=== PATIENT | female | born 1990 | race Caucasian/White ===

== ENCOUNTER 2017-01-21 05:09 | Inpatient (IN) | payer OTHER ==
--- NOTE | 2017-01-15 14:04 | PAT Medication Instructions ---
Service Date Jan 15, 2017. Current Home Medication List Multivit/Min/Iron/Fol Ac/Pren ( Vitamin), 1 TAB PO QAM Omeprazole (Prilosec), 20 MG PO QAM Medication Instructions For Your Scheduled Surgery - Hold the following medications the morning of surgery: Multivit/Min/Iron/Fol Ac/Pren ( Vitamin), 1 TAB PO QAM - Take the following medications the morning of surgery with a sip of water: Omeprazole (Prilosec), 20 MG PO QAM If you have any questions please call us at [phone] or [phone] or [phone]
[2017-01-15 14:38] LABS: BASO % 0.3 %; BASO ABS # 0.02 K/uL (0-0.2); COMPLETE YES; EOS % 0.8 %; HEMATOCRIT 38.5 % (37-47); IG% 0.3 %; LYMPH % 18.8 %; MEAN CELL VOLUME 84.1 fL (80-100); MEAN CORPUSCULAR HEMOGLOBIN 27.5 pg (25-34); MEAN CORPUSCULAR HGB CONC 32.7 g/dl (32-36); MONO % 7.9 %; NEUT % 71.9 %; PLATELET COUNT 291 K/uL (130-400); RED BLOOD COUNT 4.58 M/uL (4.2-5.4); WHITE BLOOD COUNT 7.98 K/uL (4.8-10.8)
[2017-01-21] VITALS (16 sets, daily range): BP systolic 112–122; BP diastolic 72–78; PULSE 70–95; TEMP 36.5–37.1; O2SAT 97–100; Ht 160 cm; Wt 80.7 kg
[~2017-01-21] VITALS: Ht 160 cm; Wt 80.7 kg
[~2017-01-21 05:09] MED LIST: PRENTAB26 PO; PRLSR20 PO
[2017-01-21] MEDS ORDERED: LACTATED RINGER'S 1000ML 1,000 ML IV SCH (05:20)
[2017-01-21] MEDS ORDERED: CITRIC ACID/SODIUM CITRATE 15 ML UDC PO STA (05:44)
[2017-01-21 05:52] LABS: BENZODIAZEPINE, URINE NEG (NEG); COCAINE,URINE NEG (NEG); PHENCYCLIDINE, URINE NEG (NEG)
[2017-01-21] MEDS ORDERED: CEFAZOLIN 2000 MG/60 ML D5W IV SCH (06:00)
[2017-01-21] MEDS: LACTATED RINGER'S 1000ML 1,000 ML IV SCH ×2 (06:22→18:43)
[2017-01-21 06:30] LABS: BASO % 0.3 %; BASO ABS # 0.02 K/uL (0-0.2); COMPLETE YES; EOS % 1.2 %; HEMATOCRIT 39.1 % (37-47); IG% 0.4 %; LYMPH ABS # 1.68 K/uL (1.2-3.4); MEAN CELL VOLUME 84.1 fL (80-100); MEAN CORPUSCULAR HEMOGLOBIN 26.2 pg (25-34); MEAN CORPUSCULAR HGB CONC 31.2 g/dl (32-36); MEAN PLATELET VOLUME 10.8 fL (7.4-10.4); MONO % 6.8 %; NEUT % 68.3 %; PLATELET COUNT 257 K/uL (130-400); RED BLOOD COUNT 4.65 M/uL (4.2-5.4); WHITE BLOOD COUNT 7.31 K/uL (4.8-10.8)
[2017-01-21] MEDS ORDERED: FENTANYL CITRATE INJ 50 MCG/1 ML 2 ML VIAL ONE (07:23)
[2017-01-21] MEDS ORDERED: MoRPHine SULFATE PF 1 MG/ML 10 ML AMP/VIAL ONE (07:23)
[2017-01-21] MEDS ORDERED: PHENYLEPHRINE HCL INJ 10 MG/ML VIAL ONE (07:30)
[2017-01-21] MEDS ORDERED: OXYTOCIN INJ 10 UNITS/ML VIAL ONE ×2 (07:30→08:37)
--- NOTE | 2017-01-21 07:36 | History & Physical Bridge Note ---
H&P Re-Evaluation Bridge Note: I have examined the patient, reviewed the History & Physical and in the interval since the performance of the History & Physical I have noted the following changes of clinical significance: No changes noted
[2017-01-21] MEDS ORDERED: ONDANSETRON INJ 2 MG/ML 2 ML VIAL ONE (07:53)
[2017-01-21] MEDS ORDERED: OXYTOCIN INJ 10 UNITS/ML VIAL INJ ONE (08:20)
[2017-01-21] MEDS ORDERED: LACTATED RINGER'S 1000ML 500 ML IV PRN (08:27)
[2017-01-21] MEDS ORDERED: NALOXONE HCL INJ 1 MG in SODIUM CHLORIDE 0.9% 1000ML 1,000 ML IV PRN (08:27)
[2017-01-21] MEDS ORDERED: NALOXONE HCL INJ 0.08 MG in SYRINGE 1.8 ML IV PRN (08:27)
[2017-01-21] MEDS ORDERED: SODIUM CHLORIDE 0.9% 1000ML 1,000 ML IV PRN (08:27)
[2017-01-21] MEDS ORDERED: NALOXONE HCL 0.4 MG/1 ML VIAL/CARP IV PRN (08:30)
[2017-01-21] MEDS ORDERED: MEPERIDINE HCL 25 MG/ML CARP IV PRN (08:30)
[2017-01-21] MEDS ORDERED: NALBUPHINE HCL INJ 10 MG/ML AMP IV PRN (08:30)
[2017-01-21] MEDS ORDERED: MoRPHine SULFATE PF 1 MG/ML 10 ML AMP/VIAL EPI PRN (08:30)
[2017-01-21] MEDS ORDERED: ONDANSETRON INJ 2 MG/ML 2 ML VIAL IV PRN (08:30)
[2017-01-21] MEDS ORDERED: NO NARCOTICS OR SEDATIVES SCH (08:30)
[2017-01-21] MEDS ORDERED: MoRPHine SULFATE 2 MG/ML CARP IV PRN (08:30)
[2017-01-21] MEDS ORDERED: EpHEDrine SULFATE INJ 50 MG/ML AMP IV PRN (08:30)
--- NOTE | 2017-01-21 09:24 | Anesthesiology Progress Note ---
Anesthesia Post Op Note Date & Time Jan 21, 2017 at 09:24 Notes Mental Status: alert / awake / arousable, participated in evaluation Pt Amnestic to Procedure: Yes Nausea / Vomiting: adequately controlled Pain: adequately controlled Airway Patency, RR, SpO2: stable & adequate BP & HR: stable & adequate Hydration State: stable & adequate Neuraxial Anesthesia: was administered, sensory block is resolving Anesthetic Complications: no major complications apparent
[2017-01-21] MEDS ORDERED: HYDROCORTISONE ACETATE 25 MG SUPP PR PRN (09:45)
[2017-01-21] MEDS ORDERED: SUPERCREAM 0.870 % 15GM JAR EXT PRN (09:45)
[2017-01-21] MEDS ORDERED: BENZOCAINE 20% AER SPR 82.5 GM CAN EXT PRN (09:45)
[2017-01-21] MEDS ORDERED: MAGNESIUM HYDROXIDE SUSP 30 ML UDC PO PRN (09:45)
[2017-01-21] MEDS ORDERED: LANOLIN OINT EXT PRN ×2 (09:45)
[2017-01-21] MEDS ORDERED: SENNA 8.6 MG TAB PO PRN (09:45)
--- NOTE | 2017-01-21 09:49 | [facility] Post Operative Brief Note ---
Immediate Operative Summary Operative Date Jan 21, 2017. Pre-Operative Diagnosis Primary Caesarean Section for Breech Presentation at Term Post-Operative Diagnosis same as pre-op Procedure(s) Performed Low uterine transverse incision, primary caesarean section, delivery of live female child [address] Shady Rubi Product Marketing Engineer Surgeon(s) Dr. Melinda Galdamez Estimated Blood Loss 700 ml Findings dictated Fluids (cc crystalloids) 2000cc Specimens 1. Placenta - Exam 2. Cord Blood 3. Cord Blood Gases Drains benjamin Anesthesia spinal Complication(s) None none
[2017-01-21] MEDS ORDERED: OXYTOCIN INJ 20 UNITS in LACTATED RINGER'S 1000ML 1,000 ML IV SCH (10:00)
[2017-01-21] MEDS: DiphenhydrAMINE HCL 50 MG/ML VIAL IV PRN ×2 (10:34→16:43)
[2017-01-21] MEDS: SIMETHICONE 80 MG CHEW PO SCH ×3 (12:38→20:05)
[2017-01-21] MEDS: KETOROLAC TROMETHAMINE 30 MG/ML VIAL IV. PRN ×2 (12:38→18:23)
--- NOTE | 2017-01-21 18:15 | OPERATIVE REPORT ---
DATE OF OPERATION: 01/21/2017 INDICATION FOR PROCEDURE: This is a 26-year-old patient at term with breech presentation. The patient declined external version. PREOPERATIVE DIAGNOSES: 1. Primary section for breech presentation at term. 2. The patient declined external version. POSTOPERATIVE DIAGNOSES: Same. PROCEDURE: Low transverse primary section via Pfannenstiel. SURGEON: Dr. Rubi. PORCELAIN ENAMEL INSTALLER: Dr. Bolaños. ESTIMATED BLOOD LOSS: 700 mL IV FLUIDS: 2 liters. URINE OUTPUT: Around 80 mL of clear urine at end of the procedure. SPECIMENS: 1. Placenta. 2. Cord blood. 3. Cord gases. FINDINGS: Live female in la breech presentation. There was terminal meconium at delivery. Placenta appeared meconium stained. Uterus otherwise was grossly normal. Pelvis was unremarkable. DRAINS: Malhotra catheter. ANESTHESIA: Spinal. COMPLICATIONS: None. DISPOSITION: Stable to recovery room. PROCEDURE: The patient was taken to the operating room where she was prepped and draped in normal sterile fashion. A timeout was called. A Pfannenstiel incision was made with a scalpel and carried down to the fascia. Fascia was incised in the midline and extended laterally on both sides. The rectus abdominus muscle was sharply dissected off the fascia. The mid portion of the rectus abdominis muscle was identified. Peritoneum was identified and entered sharply. Once inside the abdomen, an Ruperto retractor was placed in the abdomen for retraction. Findings of the abdomen are as dictated above. The vesicouterine peritoneum was sharply dissected off the lower segment of the uterus. A low transverse incision was made on the uterus and extended laterally on both sides. The infant buttocks was delivered first followed by the lower extremities and then the upper extremities were delivered. 's head was delivered without any difficulty. Cord was clamped and cut and handed over to the awaiting pediatric team. 's weight and Apgars in the pediatric record. Cord gas was obtained as well as cord blood. Placenta was manually removed. Uterus was exteriorized and cleared of all clots and debris. The uterus was closed in 2 layers using 0-Vicryl. The uterus, adnexa and pelvis appeared grossly normal. There was good hemostasis at the end of the closure. The uterus was returned to the abdominal cavity after copious amount of irrigation was used to irrigate the abdomen. The vesicouterine peritoneum was reapproximated using plain suture. The Ruperto retractor was at this point removed. The peritoneum reapproximated using plain suture as well. The rectus abdominus muscle was also reapproximated using plain suture in a [id number] closure. There was good hemostasis at this point in the surgery. The fascia was closed in a running manner using a Vicryl stitch. SubQ space was reapproximated with plain suture and skin was closed with 4-0 Monocryl. All instruments were removed from the abdomen and accounted for x2 including sponges and needles. Baby and mother are doing well in recovery. I attest to the content of the Intraoperative Record and any orders documented therein. Any exceptions are noted below. LYNDSEY
[2017-01-21] MEDS: DOCUSATE SODIUM 100 MG CAP PO SCH (20:05)
[2017-01-22] MEDS: KETOROLAC TROMETHAMINE 30 MG/ML VIAL IV. PRN (00:14)
[2017-01-22 00:15] VITALS: BP 105/69; PULSE 93; TEMP 37.2; O2SAT 96
[2017-01-22] MEDS ORDERED: DiphenhydrAMINE HCL 50 MG/ML VIAL IV PRN (01:45)
[2017-01-22] MEDS ORDERED: PROMETHAZINE HCL INJ 25 MG in SODIUM CHLORIDE 0.9% 50ML 50 ML IV PRN (01:45)
[2017-01-22] MEDS ORDERED: DC INTRASPINAL MORPHINE SCH (01:45)
[2017-01-22] MEDS ORDERED: ONDANSETRON INJ 2 MG/ML 2 ML VIAL IV PRN (01:45)
[2017-01-22] MEDS ORDERED: OXYCODONE/ACETAMINOPHEN 5-325 TAB PO PRN ×2 (01:45)
[2017-01-22 04:20] VITALS: BP 99/62; PULSE 103; TEMP 37.1; O2SAT 98
[2017-01-22] MEDS: IBUPROFEN 600 MG TAB PO PRN ×5 (06:22→22:08)
[2017-01-22 06:29] LABS: BASO % 0.2 %; BASO ABS # 0.02 K/uL (0-0.2); COMPLETE YES; EOS % 0.9 %; HEMATOCRIT 29.9 % (37-47); IG% 0.2 %; LYMPH ABS # 1.41 K/uL (1.2-3.4); MEAN CELL VOLUME 83.3 fL (80-100); MEAN CORPUSCULAR HEMOGLOBIN 26.7 pg (25-34); MEAN CORPUSCULAR HGB CONC 32.1 g/dl (32-36); MEAN PLATELET VOLUME 10.7 fL (7.4-10.4); MONO % 7.5 %; NEUT % 77.2 %; PLATELET COUNT 211 K/uL (130-400); RED BLOOD COUNT 3.59 M/uL (4.2-5.4); WHITE BLOOD COUNT 10.08 K/uL (4.8-10.8)
[2017-01-22 08:00] VITALS: BP 97/64; PULSE 95; TEMP 37; O2SAT 95
[2017-01-22] MEDS: FERROUS SULFATE 325 MG TAB PO SCH (08:16)
[2017-01-22] MEDS: SIMETHICONE 80 MG CHEW PO SCH ×4 (08:16→19:46)
[2017-01-22] MEDS: DOCUSATE SODIUM 100 MG CAP PO SCH ×2 (08:16→19:46)
[2017-01-22] MEDS: PRENATAL VITAMIN TAB PO SCH (08:16)
--- NOTE | 2017-01-22 09:21 | OB/GYN Progress Note ---
ICE CREAM MAN Progress Note Date of Service Jan 22, 2017. Subjective conversation w/ patient, physical exam Ambulation: ambulating normally Voiding: no voiding problems Passing Gas: No Diet Tolerance: Clear Liquids Lochia: Small Feeding Type: Bottle Feeding Pain: 3/10 Notes: Doing well, no concerns. Pain well controlled. Ambulating without difficulty. Lochia minimal. Tolerating liquids, -BM, -Flatus. Incision is c/d/i. Objective Vital Signs Date Time Temp Pulse Resp B/P (MAP) Pulse Ox O2 Delivery O2 Flow Rate FiO2 01/22/17 08:00 95 Room Air 01/22/17 08:00 37.0 95 16 97/64 (75) 95 Room Air 01/22/17 04:20 37.1 103 16 99/62 (74) 98 01/22/17 00:15 18 96 01/22/17 00:15 96 Room Air 01/22/17 00:15 37.2 93 18 105/69 (81) 01/21/17 23:00 16 98 01/21/17 22:00 16 98 01/21/17 21:00 16 99 01/21/17 20:00 18 99 01/21/17 20:00 36.8 78 18 114/76 (89) 99 Room Air 01/21/17 18:50 16 99 01/21/17 17:50 18 99 01/21/17 16:50 18 98 01/21/17 15:50 97 Room Air 01/21/17 15:50 37.0 95 16 117/74 (88) 97 Room Air 01/21/17 15:50 16 97 01/21/17 14:50 16 100 01/21/17 13:50 16 99 01/21/17 13:25 37.0 84 16 114/74 (87) 99 Room Air 01/21/17 12:50 16 100 01/21/17 12:25 36.6 88 16 113/72 (86) 100 01/21/17 11:50 16 100 01/21/17 11:25 36.5 75 16 112/74 (87) 100 Room Air 01/21/17 10:50 16 100 01/21/17 10:50 100 Room Air 01/21/17 10:50 100 Room Air 01/21/17 10:50 37.1 70 16 122/78 (93) 100 Room Air Physical Exam General Appearance: WELL-APPEARING, WD/WN Respiratory/Chest: chest non-tender, lungs clear Cardiovascular: regular rate, rhythm Abdomen: normal bowel sounds, soft Fundus: Firm Incision Description: Clean, Dry & Intact Extremities: normal range of motion, non-tender, no calf tenderness Laboratory Results Last 24 Hours Test 01/22/17 05:59 White Blood Count 10.08 K/uL Red Blood Count 3.59 M/uL Hemoglobin 9.6 g/dL Hematocrit 29.9 % Mean Corpuscular Volume 83.3 fL Mean Corpuscular Hemoglobin 26.7 pg Mean Corpuscular Hemoglobin Concent 32.1 g/dl Platelet Count 211 K/uL Mean Platelet Volume 10.7 fL Neutrophils (%) (Auto) 77.2 % Lymphocytes (%) (Auto) 14.0 % Monocytes (%) (Auto) 7.5 % Eosinophils (%) (Auto) 0.9 % Basophils (%) (Auto) 0.2 % Neutrophils # (Auto) 7.78 K/uL Lymphocytes # (Auto) 1.41 K/uL Monocytes # (Auto) 0.76 K/uL Eosinophils # (Auto) 0.09 K/uL Basophils # (Auto) 0.02 K/uL RDW Standard Deviation 42.4 fL RDW Coefficient of Variation 14.0 % Immature Granulocyte % (Auto) 0.2 % Immature Granulocyte # (Auto) 0.02 K/uL Assessment and Plan Post-Op Day Number: 1 Continue Routine Care: -Incision c/d/i, dressing removed -Advance diet and activity as tolerated -Continue routine postop care.
[2017-01-22 15:50] VITALS: BP 99/65; PULSE 93; TEMP 37.1; O2SAT 95
[2017-01-22] MEDS ORDERED: BISACODYL 5 MG TABEC PO ONE (22:00)
[2017-01-22 23:20] VITALS: BP 110/73; PULSE 95; TEMP 36.8; O2SAT 95
[2017-01-23] MEDS: IBUPROFEN 600 MG TAB PO PRN ×4 (02:01→14:29)
[2017-01-23 07:20] VITALS: BP 113/73; PULSE 86; TEMP 36.4; O2SAT 99
[2017-01-23] MEDS: DOCUSATE SODIUM 100 MG CAP PO SCH (08:29)
[2017-01-23] MEDS: PRENATAL VITAMIN TAB PO SCH (08:29)
[2017-01-23] MEDS: FERROUS SULFATE 325 MG TAB PO SCH (08:29)
[2017-01-23] MEDS: SIMETHICONE 80 MG CHEW PO SCH ×2 (08:30→12:46)
[2017-01-23] MEDS ORDERED: BISACODYL 10 MG SUPP PR PRN (09:45)
[2017-01-23] MEDS ORDERED: MTR600X PO (10:21)
--- NOTE | 2017-01-23 10:21 | OB/GYN Progress Note ---
PERINATOLOGY PHYSICIAN Progress Note Date of Service: Jan 23, 2017. Patient is seen and examined. She feels well, no complaints. Likes to be discharged today Pain is under control with oral meds. Ambulating without dizziness Voiding without difficulty Tolerating regular diet with out N&V Flatus + BM neg Bleeding is minimal No fever/ chills/ CP/ SOB/ N&V/ Leg pain Bottle feeding without problems Date Time Temp Pulse Resp B/P (MAP) Pulse Ox O2 Delivery O2 Flow Rate FiO2 01/22/17 23:20 Room Air 01/22/17 23:20 36.8 95 16 110/73 (85) 95 Room Air 01/22/17 15:50 95 Room Air 01/22/17 15:50 37.1 93 16 99/65 (76) 95 Room Air Last 24 Hours Test 01/23/17 08:19 Hemoglobin 11.0 g/dL Hematocrit 35.0 % PE: General: Alert, orientedx3, NAD CVS: S1S2 RRR Lungs; CTAB Abd: soft, NT, fundus firm, below Umbilicus Incision: Clean, dry, intact Perineum intact, Lochia rubra minimal Ext; NT, no edema AP: 26 yo s/p C Section, pod# 2 VSS Afebrile doing well Continue routine postop care Encourage ambulation, PO intake All questions were answered D/C home if baby will be d/c'ed today
--- NOTE | 2017-01-23 10:22 | Discharge Instructions ---
Discharge Instructions Date of Service Jan 23, 2017. Admission Reason for Admission: Breech Presentation Discharge Discharge Diagnosis / Problem: Primary Csection Discharge Goals Goal(s): Routine recovery after Activity Recommendations Activity Limitations: as noted below ACTIVITY RECOMMENDATIONS: * Gradual return to full activity over the next 2-3 weeks. * No lifting - nothing heavier than baby over the next 2-3 weeks. * Do not engage in vigorous exercise, sexual activity or sports until cleared by your physician. * Do not drive or operate any motorized equipment until cleared by your physician. * You may shower/bathe daily. BREAST CARE: If you are not breast feeding: * Wear a supportive bra 24 hours a day for one to two weeks. * Avoid stimulating your breasts and nipples as much as possible during the first few weeks after delivery. * When taking a shower, have the warm water hit your back, not breasts. * When your breasts feel full, apply ice packs. Usually three to four times a day helps ease the discomfort. * Take a mild pain medication (Tylenol/Motrin) when you are uncomfortable. If breast feeding: * Use breast milk to lubricate nipples. Lansinoh cream may be used for sore nipples. You do not need to remove cream prior to breast feeding. If using a different brand of cream, check the label for directions regarding removal of cream prior to nursing. * Wear a supportive bra. * If having problems with breasts or breast feeding, call a mgmt consultant or your health care provider. OVER THE COUNTER MEDICATION: * For discomfort or pain, you may use Acetaminophen (Tylenol), Ibuprofen (Advil ), or Naproxen (Aleve) following the package directions. * For constipation you may use Colace following the package directions. SPECIAL CARE INSTRUCTIONS: When you are discharged from the hospital, it is important for you to follow the instructions listed below: * During the first week at home, you should be able to care for yourself and your baby. In addition, the usual light household activities are encouraged. * Limit your activities to the way you feel. Do not try to clean the house or move furniture. Be sensible. * If you actively engage in sports and have done so up until the time of your delivery, you may resume these activities as soon as you feel able. This may take up to one month or even longer. Use good judgment. * Continue to take your vitamins for at least six weeks after the of your baby. * Your diet need not be limited unless you were on a special diet before your delivery. Breast-feeding mothers need around 2500 calories per day and at least 64-80 ounces of fluid per day (8 to 10 glasses). * You should eat foods from the four major food groups. Crash diets or fad diets are to be avoided. Eating lean meats, fresh fruits and vegetables, low-fat dairy products, high fiber foods and a regular exercise program, will help you get back to your pre- weight without putting your health at risk. * Constipation is sometimes a problem after delivery. Take a mild laxative as needed. If breast feeding, Milk of Magnesia is acceptable to use. You may use a suppository or Fleets enema if no episiotomy. * A daily shower or tub bath is suggested. Be sure to thoroughly and gently dry the perineum. * A bloody vaginal discharge will usually continue until around four weeks post . A small amount of bleeding may continue for as long as six weeks. Vaginal discharge changes from the bright red bleeding after delivery to pink then brownish and finally yellowish-pink before becoming white and disappearing. * Bleeding may increase with activity. Your first period may come in 4-8 weeks. If you are breast feeding, your period may be delayed even longer. * [place] (sex) can begin whenever both you and your partner feel comfortable and do not have any form of genital infection. It is recommended that you wait at least six weeks for internal and external healing to occur. If you have questions, please talk to your health care practitioner. A condom should be used to prevent infection and . * Foreplay, gentle intercourse and lubrication is very important the first several times to prevent pain. A water-based lubricant such as K-Y jelly or Astroglide may be used. * Tampons and/or Douching should be avoided until after six weeks check-up. * If you have RH negative blood and your baby is RH positive, you will receive RHOGAM by injection prior to discharge. The nurse will give you a card to keep with you that has the date and place that you received RHOGAM after delivery. * During your care, you had a Rubella screen done to check for the presence of rubella antibodies in your blood. If your test was negative, you will receive a Rubella vaccine prior to discharge. This vaccine may cause a fever, soreness at the injection site and flu-like symptoms. If these symptoms persist, notify your health care practitioner. is not advised for three months after a Rubella vaccine. * Verbalizes understanding of car seat law as reviewed with patient nursing. * Car Seat hand-out given and reviewed with patient by nursing. * Shaken baby information reviewed with patient by nursing. Call you doctor if: * Heavy bleeding (saturating several pads an hour) or passing clots the size of your fist. * A fever >101 degrees F (38.3 degrees C) on two occasions four hours apart and /or chills. * Unusual pain in the pelvic or vaginal areas. Pain should improve each day . * Call the doctor for any increased redness, drainage or swelling around the incision and any pain unrelieved by prescribed pain medication. * Any signs or symptoms of phlebitis (possible blood clots forming in the veins ): leg pain, warm, red or swollen area on leg. * "Baby Blues" lasting longer than two weeks. If you have any questions or concerns, call your health care practitioner at . FOLLOW-UP VISIT: * Incision check (staple removal) in 1 week. Please call doctor's office at to set up appointment. * Please call the office at to schedule a 6 week examination. It is important you keep this appointment. * It is important for you to make arrangements for either yearly or twice yearly check-ups thereafter. . Current Hospital Diet Patient's current hospital diet: Regular OB Diet Discharge Diet Recommended Diet: Regular Diet Procedures Procedures Performed: Low uterine transverse incision, primary caesarean section, delivery of live female child 0811 Pending Studies Studies pending at discharge: no Medical Emergencies . Who to Call and When: Medical Emergencies: If at any time you feel your situation is an emergency, please call [phone] immediately. . Non-Emergent Contact Non-Emergency issues call your: Surgeon Call Non-Emergent contact if: temperature is above 100.5, your pain is not controlled, wound has increased drainage, wound has increased redness . . "Provider Documentation" section prepared by Geraldine Galdamez. . VTE Core Measure Inpt VTE Proph given/why not?: Treatment not indicated
[2017-01-23 15:07] VITALS: BP_DIAS 73; PULSE 86; TEMP 36.4
--- NOTE | 2017-02-03 14:05 | DISCHARGE SUMMARY ---
CHIEF COMPLAINT: 1. at term. 2. Breech fetus presentation. The patient declined external version. HISTORY OF PRESENT ILLNESS: This is a 26-year-old G1, P0 with due date of 01/26/2017. The patient was 39+ weeks on January 21 when she presented to labor and delivery for primary section for breech presentation. The patient underwent a primary section and details of the surgery are in the surgical note. Surgery was unremarkable. She delivered a live female weighing 3162 grams, 9 and 9. Details of the infant is in the pediatric record as well. Surgery was unremarkable. The patient did well, tolerated the procedure well and recovery was unremarkable. On postop day #1, the patient was able to ambulate, tolerate p.o. food and meds. Activity was advanced on postop day #2, 01/23/2017 and was discharged home in stable condition. PAST MEDICAL HISTORY: 1. The patient has history of acid reflux disease. 2. History of drug use. 3. History of hepatitis infection. 4. History of incarceration. 5. History of migraine headaches. 6. History of seizures. PAST SURGICAL HISTORY: The patient had dental surgery in the past. SOCIAL HISTORY: The patient has history of incarceration. The patient is a smoker was a heroin user and presently declined any heroin or other drug use. FAMILY HISTORY: Noncontributory. OBSTETRICAL/GYNECOLOGICAL HISTORY: Unremarkable PHYSICAL EXAMINATION: GENERAL: Well-developed, well-nourished white female in no acute distress. HEART: S1, S2, regular rhythm and rate. LUNGS: Clear to auscultation bilaterally. ABDOMEN: Gravid. Incision clean, dry and intact at time of discharge. EXTREMITIES: No cyanosis, clubbing or edema. VITAL SIGNS: On 01/23/2017 showed temperature 36.4, pulse of 86, respirations of 16. LABORATORY DATA: On 01/23/2017 - hemoglobin was 11.0, hematocrit was 35.0. ALLERGIES: THE PATIENT IS ALLERGIC TO NITROFURANTOIN AND BACTRIM. CONDITION ON DISCHARGE: Stable. OPERATIONS: Primary section. DISCHARGE DIAGNOSIS: Postoperative section. PLAN ON DISCHARGE: The patient is discharged home with instructions regarding activity, diet, followup appointment and medication. LYNDSEY
== END 2017-01-23 15:30 | disposition home or self-care (01) | DRG 765 ==
LOC: C.LD 05:09 → EDSTATUS 09:00 → C.OBG 11:23
PROVIDERS: ADMIT Obstetrics & Gynecology; ATTEND Obstetrics & Gynecology
PROC: 10D00Z1 Extraction of Products of Conception, Low, Open Approach (ICD-10-PCS; principal; 2017-01-21 07:30)
DX: O32.1XX0 Maternal care for breech presentation, not applicable or unspecified (principal); O98.413 Viral hepatitis complicating pregnancy, third trimester; Z3A.39 39 weeks gestation of pregnancy; Z86.59 Personal history of other mental and behavioral disorders; O99.334 Smoking (tobacco) complicating childbirth; Z83.3 Family history of diabetes mellitus; K21.9 Gastro-esophageal reflux disease without esophagitis; O99.62 Diseases of the digestive system complicating childbirth; F17.200 Nicotine dependence, unspecified, uncomplicated; Z37.0 Single live birth

== ENCOUNTER → 2017-03-20 | Outpatient (CLI) | payer OTHER ==
[~2017-03-20] MED LIST changes: +MTR600X PO
[2017-03-20 17:37] LABS: BASO % 0.8 %; BASO ABS # 0.04 K/uL (0-0.2); COMPLETE YES; EOS % 2.3 %; HEMATOCRIT 42.8 % (37-47); IG% 0.2 %; LYMPH % 34.8 %; LYMPH ABS # 1.85 K/uL (1.2-3.4); MEAN CELL VOLUME 86.5 fL (80-100); MEAN CORPUSCULAR HEMOGLOBIN 28.1 pg (25-34); MEAN CORPUSCULAR HGB CONC 32.5 g/dl (32-36); MEAN PLATELET VOLUME 11.2 fL (7.4-10.4); MONO % 6.8 %; NEUT % 55.1 %; PLATELET COUNT 259 K/uL (130-400); RED BLOOD COUNT 4.95 M/uL (4.2-5.4); WHITE BLOOD COUNT 5.32 K/uL (4.8-10.8)
[2017-03-20 18:36] LABS: PREG INTERNAL NEGATIVE QC NEG CLEAR BACKGROUND; PREG INTERNAL POSITIVE QC POS CONTROL LINE
== END | disposition home or self-care (01) ==
LOC: C.LABPBG 14:53
PROVIDERS: ATTEND Family Medicine
DX: F11.20 Opioid dependence, uncomplicated (principal)

== ENCOUNTER 2019-08-02 21:52 | Inpatient (IN) ==
[2019-08-02] MEDS ORDERED: LACTATED RINGER'S 1,000 ML IV ONE (22:05)
[2019-08-02] MEDS ORDERED: TERBUTALINE SULFATE 1 MG/ML VIAL ONE (22:07)
[2019-08-02] MEDS ORDERED: TERBUTALINE SULFATE 1 MG/ML VIAL SQ STA (22:09)
[2019-08-02] MEDS ORDERED: BETAMETH SOD PHOS/ACETATE IA 6 MG/ML IM STA (23:58)
[2019-08-03] LABS: Amphetamines+Metham, Urine Neg (Neg); Barbiturates, Urine Neg (Neg); Benzodiazepine, Urine Neg (Neg); Cocaine, Urine Neg (Neg); MDMA (Ecstacy), Urine Neg (Neg); Methadone, Urine Neg (Neg); Opiate, Urine Neg (Neg); Phencyclidine, Urine Neg (Neg)
[2019-08-03] MEDS ORDERED: BETAMETH SOD PHOS/ACETATE IA 6 MG/ML ONE
[2019-08-03] MEDS ORDERED: CEFAZOLIN 2000MG 2,000 MG/15 ML SYR IV STA (00:06)
[2019-08-03] MEDS ORDERED: CITRIC ACID/SODIUM CITRATE 15 ML UDC PO STA (00:06)
--- NOTE | 2019-08-03 00:11 | Anesthesiology Consultation ---
Date of Service August 03, 2019 Assessment & Plan (1) Encounter for pre-operative examination: Chart Review Chart Review: Acceptable Risk for Surgery History Surgery Operation Date: 08/02/19 23:55 Proposed Procedures p Section in LD - Darien Rubi MD Height/Weight Height: 5 ft 3 in Weight: 82.1 kg Allergies Allergy/AdvReac Type Severity Reaction Status Date / Time Bactrim Allergy Mild RASH Verified 01/15/17 13:57 nitrofurantoin Allergy Mild RASH Verified 03/03/19 01:36 sulfamethoxazole Allergy Mild RASH Verified 03/03/19 01:36 trimethoprim Allergy Mild RASH Verified 03/03/19 01:36 Medications Home Medications Medication Instructions Recorded Confirmed Last Taken PNV cmb#95-ferrous fumarate-FA 1 tab PO DAILY 03/03/19 08/02/19 08/02/19 08:00 [] Past Medical History Medical History (Updated 08/03/19 @ 00:13 by Everett Francisco MD) [place] disease (Acute) Hepatitis C (Acute) Pyelonephritis (Resolved) Past Surgical History Surgical History (Updated 08/03/19 @ 00:10 by Everett Francisco MD) Hx of section Social History Smoking Status: Former smoker Smoking End Date: 11/2018 Hx Alcohol Use: No Hx Substance Use: No substance use type: heroin and methamphetamine Last Used Substance Other:: 2017 Physical Exam Vital Signs Last Vital Signs Temp 36.7 C 08/02/19 21:56 Pulse 130 H 08/03/19 00:07 Resp 22 08/02/19 21:56 BP 132/84 08/02/19 21:56 Pulse Ox 97 08/03/19 00:07
[2019-08-03] MEDS ORDERED: MoRPHine SULFATE PF 1 MG/ML 10 ML AMP/VIAL ONE (00:13)
[2019-08-03 00:25] LABS: Basophils # (auto) 0.01 K/uL (0-0.2); Basophils % (auto) 0.1 %; Eosinophils # (auto) 0.08 K/uL (0-0.5); Eosinophils % (auto) 0.7 %; Hematocrit (blood only) 32.8 % (37-47); Hemoglobin 10.2 g/dL (12.0-16.0); Immature Granulocytes # (auto) 0.06 K/uL (0.00-0.02); Immature Granulocytes % (auto) 0.5 %; Lymphocytes # (auto) 1.76 K/uL (1.2-3.4); Lymphocytes % (auto) 14.4 %; Mean Corpuscular Hemoglobin 24.8 pg (25-34); Mean Corpuscular Volume 79.8 fL (80-100); Mean Platelet Volume 10.6 fL (7.4-10.4); Monocytes # (auto) 1.08 K/uL (0.11-0.59); Monocytes % (auto) 8.8 %; Neutrophils # (auto) 9.25 K/uL (1.4-6.5); Neutrophils % (auto) 75.5 %; Platelet Count 240 K/uL (130-400); RDW Standard Deviation 49.6 fL (36.4-46.3); Red Blood Count 4.11 M/uL (4.2-5.4); White Blood Count 12.24 K/uL (4.8-10.8)
[2019-08-03 00:28] LABS: Mean Corpuscular Hgb Conc 31.1 g/dL (32-36)
[2019-08-03] MEDS ORDERED: METOCLOPRAMIDE HCL INJ 5 MG/ML 2 ML VIAL ONE (00:35)
[2019-08-03] MEDS ORDERED: PROPOFOL IV EMULSION 10 MG/ML 20 ML VIAL IV ONE (00:35)
[2019-08-03] MEDS ORDERED: ONDANSETRON INJ 2 MG/ML 2 ML VIAL ONE (00:35)
[2019-08-03] MEDS ORDERED: LIDOCAINE 2% 20 MG/ML 5 ML SYR IV ONE (00:35)
[2019-08-03] MEDS ORDERED: OXYTOCIN 10 UNITS/ML VIAL ONE (00:35)
[2019-08-03] MEDS ORDERED: NALOXONE HCL 1 MG in SODIUM CHLORIDE 0.9% 1000ML 1,000 ML IV PRN (00:37)
[2019-08-03] MEDS ORDERED: MEPERIDINE HCL 25 MG/ML CARP/VIAL IV PRN (00:37)
[2019-08-03] MEDS ORDERED: NALOXONE HCL 0.4 MG/1 ML VIAL/CARP IV PRN (00:37)
[2019-08-03] MEDS ORDERED: LACTATED RINGER'S 500 ML IV PRN (00:37)
[2019-08-03] MEDS ORDERED: PROMETHAZINE HCL 12.5 MG in SODIUM CHLORIDE 0.9% 50 ML IV PRN (00:37)
[2019-08-03] MEDS ORDERED: ePHEDrine sulfate 50 MG/ML AMP IV PRN (00:37)
[2019-08-03] MEDS ORDERED: DiphenhydrAMINE HCL 50 MG/ML VIAL IV PRN ×2 (00:37→18:37)
[2019-08-03] MEDS ORDERED: NALBUPHINE HCL INJ 10 MG/ML AMP IV PRN (00:37)
[2019-08-03] MEDS ORDERED: NALOXONE HCL 0.08 MG in SYRINGE 1.8 ML IV PRN (00:37)
[2019-08-03] MEDS ORDERED: MoRPHine SULFATE PF 1 MG/ML 10 ML AMP/VIAL INT SPINAL ONE (00:37)
[2019-08-03] MEDS ORDERED: ONDANSETRON INJ 2 MG/ML 2 ML VIAL IV PRN ×2 (00:37→18:37)
[2019-08-03] MEDS: LACTATED RINGER'S 1,000 ML IV SCH ×3 (00:41→11:51)
[2019-08-03] MEDS ORDERED: SODIUM CHLORIDE 0.9% 1000ML 1,000 ML IV SCH (00:45)
[2019-08-03] MEDS ORDERED: NO NARCOTICS OR SEDATIVES SCH (00:45)
[2019-08-03] MEDS ORDERED: DC INTRASPINAL MORPHINE SCH (00:45)
[2019-08-03] MEDS ORDERED: OXYTOCIN 10 UNITS/ML VIAL IM ONE (01:25)
[2019-08-03] MEDS ORDERED: PHENYLEPHRINE 100MCG/ML 5ML SYR ONE (01:42)
--- NOTE | 2019-08-03 01:43 | History and Physical Report ---
DATE OF ADMISSION: 08/02/2019 HISTORY OF PRESENT ILLNESS: The patient is a 29-year-old G2, P1, due date 09/07/2019 making her 35 weeks today, presented to labor and delivery with contractions every 3-4 minutes. She was given IV fluids and terbutaline. The patient has a prior section. Her cervix changed from 3-4 cm. The patient wishes to have repeat . Decision was therefore made to undergo repeat section at the patient's request. course has been unremarkable except for history of hepatitis C and history of drug abuse. The patient denies any drug abuse through this . PAST MEDICAL HISTORY: Include migraines, history of drug use, history of hepatitis C, history of seizures. PAST SURGICAL HISTORY: Prior section for breech presentation in 01/2017. FAMILY HISTORY: Noncontributory. ALLERGIES: THE PATIENT IS ALLERGIC TO BACTRIM, NITROFURANTOIN AND SULFA. SOCIAL HISTORY: The patient has a history of drug use, but denies any drug use in this . Denies tobacco or alcohol use. PHYSICAL EXAMINATION: GENERAL: Well-developed, well-nourished white female in labor discomfort. VITAL SIGNS: Blood pressure 132/84, respirations 22, temperature is 36.7. HEART: S1, S2, regular rhythm and rate. LUNGS: Clear to auscultation bilaterally. ABDOMEN: Gravid. Bedside ultrasound shows cephalic presentation. PELVIC: The patient is 3-4 cm, 70% effaced, and -2. EXTREMITIES: No cyanosis, clubbing or edema. ASSESSMENT AND PLAN: A 29-year-old G2, P1 at 35 weeks, prior section in labor, attempts to stop labor was unsuccessful. The patient has progressed while in observation, decision was therefore made to perform repeat section at the patient's request. Risks of surgery including infection, bleeding, damage to adjacent organs have been discussed with the patient. The patient has signed consent. We will proceed with section. LYNDSEY
[2019-08-03] MEDS ORDERED: HYDROCORTISONE ACETATE 25 MG SUPP PR PRN (01:59)
[2019-08-03] MEDS ORDERED: SUPERCREAM 0.870% 15 GM JAR EXT PRN (01:59)
[2019-08-03] MEDS ORDERED: SENNA 8.6 MG TAB PO PRN (01:59)
[2019-08-03] MEDS ORDERED: DIPHTHERIA/TETANUS/PERTUSSIS 0.5 ML SYR/VIAL IM ONE (01:59)
[2019-08-03] MEDS ORDERED: MAGNESIUM HYDROXIDE SUSP 30 ML UDC PO PRN (01:59)
[2019-08-03] MEDS ORDERED: BENZOCAINE 20% AER SPR 82.5 GM CAN EXT PRN (01:59)
[2019-08-03] MEDS ORDERED: LACTATED RINGER'S 1,000 ML IV SCH (02:00)
--- NOTE | 2019-08-03 02:05 | Post Operative Brief Note ---
Immediate Post Op Note v1 Date of Surgery August 03, 2019 Pre & Post Diagnosis Operation Date: 08/02/19 23:55 Pre-Op Diagnosis: 1. Labor 2. History of c/s Post-Op Diagnosis: 1. Same 2. Delivery of live male child at 0114 3. Lower uterine transverse incision I identified the patient and participated in the time-out.: Yes Procedure Operation Date: 08/02/19 23:55 Actual Procedures p Section in LD - Darien Rubi MD Surgeon Darien Rubi MD Crusher Loader Operator Zahra lAba RN Estimated Blood Loss 800 Findings Consistent with Post-Op Diagnosis Drains Malhotra Catheter
--- NOTE | 2019-08-03 02:30 | Anesthesiology Progress Note ---
Date of Service August 03, 2019 Anesthesia Post Procedure Vital Signs Vital Signs: Temp Pulse Resp BP Pulse Ox 08/03/19 02:28 104 H 20 144/65 H 08/03/19 02:27 99 H 99 08/03/19 02:22 101 H 100 08/03/19 02:18 106 H 20 137/73 08/03/19 02:17 104 H 100 08/03/19 02:12 106 H 100 08/03/19 02:08 18 08/03/19 02:07 104 H 118/59 L 98 08/03/19 02:02 98 H 100 08/03/19 01:58 36.5 C 98 H 18 115/57 L 08/03/19 01:57 96 H 100 08/03/19 00:43 129 H 98 08/03/19 00:40 121 H 94 08/03/19 00:38 138 H 93 08/03/19 00:33 124 H 96 08/03/19 00:28 136 H 96 08/03/19 00:23 126 H 98 08/03/19 00:17 127 H 97 08/03/19 00:12 134 H 96 08/03/19 00:07 130 H 97 08/03/19 00:02 130 H 97 08/02/19 23:57 130 H 98 08/02/19 23:52 128 H 98 08/02/19 23:47 99 H 96 08/02/19 23:42 109 H 98 08/02/19 23:37 103 H 95 08/02/19 23:32 102 H 97 08/02/19 23:27 103 H 96 08/02/19 23:22 115 H 95 08/02/19 23:19 99 H 92 08/02/19 23:17 109 H 95 08/02/19 23:12 105 H 98 08/02/19 23:07 104 H 99 08/02/19 22:54 109 H 96 08/02/19 22:51 100 H 93 08/02/19 22:49 102 H 97 08/02/19 22:46 105 H 94 08/02/19 22:44 113 H 96 08/02/19 22:40 101 H 92 08/02/19 22:39 110 H 96 08/02/19 22:34 107 H 94 08/02/19 22:32 102 H 93 08/02/19 22:29 117 H 97 08/02/19 22:24 105 H 94 08/02/19 22:19 111 H 96 08/02/19 22:11 106 H 90 08/02/19 22:10 129 H 97 08/02/19 22:05 125 H 98 08/02/19 21:56 36.7 C 133 H 22 132/84 Transfer of Care Handoff Completed per policy Notes Mental Status: alert / awake / arousable Patient Amnestic to Procedure: Yes Nausea / Vomiting: adequately controlled Pain: adequately controlled Airway Patency, RR, SpO2: stable & adequate BP & HR: stable & adequate Hydration State: stable & adequate Anesthetic Complications: no major complications apparent
[2019-08-03] MEDS: KETOROLAC 30 MG/ML VIAL IV PRN ×3 (03:38→16:03)
--- NOTE | 2019-08-03 03:58 | Operative Report (OR) ---
DATE OF OPERATION: 08/02/2019 INDICATION FOR PROCEDURE: This is a 29-year-old G2, P1 at 35 weeks, prior section, who presented in labor. The patient had declined a trial of labor after , so she underwent repeat section. PREOPERATIVE DIAGNOSES: 1. at 35+ weeks. 2. Previous section. 3. Declines trial of labor after . 4. Presented to labor and delivery in labor. POSTOPERATIVE DIAGNOSES: 1. at 35+ weeks. 2. Previous section. 3. Declines trial of labor after . 4. Presented to labor and delivery in labor. PROCEDURE: Repeat section. SURGEON: Darien Rubi MD ENGLISH LANGUAGE LEARNER TUTOR: Anali Mancilla RN. IV FLUIDS 2300. ESTIMATED BLOOD LOSS: 800 mL. URINE OUTPUT: 300 mL clear urine at end of procedure. FINDINGS: Live infant in occiput anterior presentation. Uterus appeared grossly normal. Placenta appeared to have some necrotic components to it, is sent to pathology for pathological analysis. DRAINS: Malhotra catheter. COMPLICATIONS: None. PATHOLOGY: Placenta. DISPOSITION: Stable to recovery room. DESCRIPTION OF PROCEDURE: The patient was taken to the operating room where she was prepped and draped in normal sterile fashion. Timeout was called. A Pfannenstiel incision was made through the old incision and carried down to the fascia with a scalpel. Fascia was incised in the midline and extended laterally on both sides. Peritoneum was identified and entered sharply. This is done after the rectus abdominus muscle was in the midline. Once inside the abdomen, the findings were as dictated above. An Ruperto retractor was placed in the abdomen for retraction. The vesicouterine peritoneum was sharply dissected off the lower segment of the uterus. Low transverse incision was made on the uterus and extended laterally on both sides. head was delivered, mouth was suctioned, cord was clamped and cut and handed over to the waiting pediatric team. Infant's weight and Apgars in the pediatric record. Placenta was manually removed. As stated above, the placenta appeared to have some necrotic components to it. It is sent to pathology for pathological analysis. Uterus was exteriorized and cleared of all clot and debris. Uterus, tubes, and adnexa appeared grossly normal otherwise. The uterus was closed in 2 layers using a Vicryl stitch. There was good hemostasis post-closure. Copious amount of irrigation used to irrigate the abdomen. Uterus was placed back into the abdomen. Bladder was reapproximated with plain suture. An Ruperto retractor was removed and peritoneum was closed in a running fashion using plain suture. Fascia was closed in a running fashion using Vicryl stitch. SubQ space was approximated using plain suture. Skin was closed with tramaine. All instruments were removed from the abdomen and accounted for x2 including sponges, needles and retractors. The patient and baby are sent to recovery in stable condition. I attest to the content of the Intraoperative Record and any orders documented therein. Any exceptions are noted below. MTDD
[2019-08-03] MEDS: PRENATAL VITAMIN 1 TAB PO SCH (08:19)
[2019-08-03] MEDS: SIMETHICONE 80 MG CHEW PO SCH ×4 (08:19→20:44)
[2019-08-03] MEDS: DOCUSATE SODIUM 100 MG CAP PO SCH ×2 (08:19→20:44)
[2019-08-03] MEDS: FERROUS SULFATE 325 MG TAB PO SCH (08:19)
[2019-08-03] MEDS ORDERED: OXYCODONE/ACETAMINOPHEN 5mg/325mg TAB PO PRN (18:37)
[2019-08-03] MEDS ORDERED: PROMETHAZINE HCL 25 MG in SODIUM CHLORIDE 0.9% 50 ML IV PRN (18:37)
[2019-08-03] MEDS: IBUPROFEN 600 MG TAB PO PRN (22:33)
[2019-08-04] MEDS: IBUPROFEN 600 MG TAB PO PRN ×5 (02:11→23:18)
[2019-08-04] MEDS ORDERED: ACETAMINOPHEN 325 MG TAB PO PRN (02:17)
[2019-08-04 06:32] LABS: Basophils # (auto) 0.03 K/uL (0-0.2); Basophils % (auto) 0.3 %; Eosinophils # (auto) 0.09 K/uL (0-0.5); Eosinophils % (auto) 0.9 %; Hematocrit (blood only) 29.5 % (37-47); Hemoglobin 9.1 g/dL (12.0-16.0); Immature Granulocytes # (auto) 0.09 K/uL (0.00-0.02); Immature Granulocytes % (auto) 0.9 %; Lymphocytes # (auto) 1.82 K/uL (1.2-3.4); Lymphocytes % (auto) 18.3 %; Mean Corpuscular Hemoglobin 25.2 pg (25-34); Mean Corpuscular Hgb Conc 30.8 g/dL (32-36); Mean Corpuscular Volume 81.7 fL (80-100); Monocytes # (auto) 0.78 K/uL (0.11-0.59); Monocytes % (auto) 7.9 %; Neutrophils # (auto) 7.12 K/uL (1.4-6.5); Neutrophils % (auto) 71.7 %; Platelet Count 211 K/uL (130-400); RDW Coefficient of Variation 17.5 % (11.5-14.5); RDW Standard Deviation 52.3 fL (36.4-46.3); Red Blood Count 3.61 M/uL (4.2-5.4); White Blood Count 9.93 K/uL (4.8-10.8)
--- NOTE | 2019-08-04 08:06 | Obstetrical Progress Note ---
Date of Service August 04, 2019 Assessment & Plan Admission and Anticipated Discharge Date Admission Date: August 02, 2019 Subjective Patient is seen and examined. She feels well, no complaints. Pain is under control with oral meds. Ambulating without dizziness. Voiding without difficulty Tolerating regular diet with out N&V Flatus + BM + Bleeding is minimal No fever/ chills/ CP/ SOB/ N&V/ Leg pain Breast feeding without problems Vital Signs Temp Pulse Resp BP Pulse Ox 08/03/19 23:45 36.7 C 80 16 114/72 94 08/03/19 19:15 36.9 C 74 18 124/72 92 08/03/19 18:00 18 97 08/03/19 17:12 18 96 08/03/19 16:15 18 96 08/03/19 15:40 36.8 C 75 18 119/75 97 08/03/19 15:15 18 95 08/03/19 14:47 16 95 08/03/19 14:09 16 96 08/03/19 13:00 16 95 08/03/19 12:00 16 95 08/03/19 11:20 37 C 76 16 121/67 95 08/03/19 11:00 16 95 08/03/19 10:00 16 95 08/03/19 09:00 18 95 Intake and Output 08/03/19 08/04/19 08/04/19 22:59 06:59 14:59 Intake Total 1314.583 / 3158.333 Output Total 1400 / 2800 Balance -85.417 / 358.333 Intake: IV 714.583 / 1958.333 Lr 1,000 ml @ 125 mls/hr IV . 714.583 / 1958.333 [facility] Rx#:[id number] Oral 600 / 1200 Output: Urine Amount (Catheter) 1400 / 2800 Malhotra/Indwelling 1400 / 2800 Lab Results 08/02/19 08/03/19 08/04/19 Range/Units 23:00 00:05 06:08 WBC 12.24 H 9.93 (4.8-10.8) K/uL RBC 4.11 L 3.61 L (4.2-5.4) M/uL Hgb 10.2 L 9.1 L (12.0-16.0) g/dL Hct 32.8 L 29.5 L (37-47) % MCV 79.8 L 81.7 (80-100) fL MCH 24.8 L 25.2 (25-34) pg MCHC 31.1 L 30.8 L (32-36) g/dL RDW Std Deviation 49.6 H 52.3 H (36.4-46.3) fL RDW Coeff of Melissa 17.0 H 17.5 H (11.5-14.5) % Plt Count 240 211 (130-400) K/uL MPV 10.6 H 10.0 (7.4-10.4) fL Immature Gran % (Auto) 0.5 0.9 % Neut % (Auto) 75.5 71.7 % Lymph % (Auto) 14.4 18.3 % Saunders % (Auto) 8.8 7.9 % Eos % (Auto) 0.7 0.9 % Baso % (Auto) 0.1 0.3 % Immature Gran # (Auto) 0.06 H 0.09 H (0.00-0.02) K/uL Neut # (Auto) 9.25 H 7.12 H (1.4-6.5) K/uL Lymph # (Auto) 1.76 1.82 (1.2-3.4) K/uL Saunders # (Auto) 1.08 H 0.78 H (0.11-0.59) K/uL Eos # (Auto) 0.08 0.09 (0-0.5) K/uL Baso # (Auto) 0.01 0.03 (0-0.2) K/uL Urine Opiates Screen Neg (Neg) Ur Methadone, Qual Neg (Neg) Urine Barbiturates Neg (Neg) Ur Phencyclidine (PCP) Neg (Neg) U Amphetamin/Meth Scrn Neg (Neg) MDMA (Ecstasy) Screen Neg (Neg) U Benzodiazepines Scrn Neg (Neg) Ur Cocaine Metabolite Neg (Neg) U Marijuana (THC) Screen Neg (Neg) PE: General: Alert, orientedx3, NAD CVS: S1S2 RRR Lungs; CTAB Abd: soft, NT, ND, BS+, fundus firm, at Umbilicus Incision: Clean, dry, intact Perineum intact, Lochia rubra minimal Ext; NT, no edema AP: 29 yo s/p RC Section, pod# 1 VSS Afebrile doing well Continue routine postop care Encourage ambulation, PO intake All questions were answered Results & Data ([facility]) Vital Signs (Past 12 Hours) Vital Signs Temp Pulse Resp BP Pulse Ox 08/03/19 23:45 36.7 C 80 16 114/72 94
[2019-08-04] MEDS: SIMETHICONE 80 MG CHEW PO SCH ×4 (09:28→20:32)
[2019-08-04] MEDS: DOCUSATE SODIUM 100 MG CAP PO SCH ×2 (09:28→20:32)
[2019-08-04] MEDS: FERROUS SULFATE 325 MG TAB PO SCH (09:28)
[2019-08-04] MEDS: PRENATAL VITAMIN 1 TAB PO SCH (09:29)
[2019-08-04] MEDS ORDERED: bisacodyL 5 MG TABEC PO SCH (20:00)
[2019-08-05] MEDS ORDERED: bisacodyL 10 MG SUPP PR PRN (01:59)
[2019-08-05] MEDS: IBUPROFEN 600 MG TAB PO PRN ×5 (04:21→20:05)
[2019-08-05 06:26] LABS: Hematocrit (blood only) 32.3 % (37-47); Hemoglobin 9.8 g/dL (12.0-16.0)
[2019-08-05] MEDS: FERROUS SULFATE 325 MG TAB PO SCH (08:15)
[2019-08-05] MEDS: DOCUSATE SODIUM 100 MG CAP PO SCH ×2 (08:15→20:06)
[2019-08-05] MEDS: SIMETHICONE 80 MG CHEW PO SCH ×4 (08:15→20:05)
[2019-08-05] MEDS: PRENATAL VITAMIN 1 TAB PO SCH (08:15)
--- NOTE | 2019-08-05 08:54 | Obstetrical Progress Note ---
Date of Service August 05, 2019 Assessment & Plan (1) delivery delivered: c/sec Day #2 pt doing well anticipate disch tomorrow Subjective Ambulation: ambulating normally Voiding: no voiding problems Passing Gas:: Yes Diet Tolerance:: clear liquids Lochia:: Small Feeding Type:: breast feeding Review of Systems All systems reviewed & are unremarkable except as noted in HPI & below Physical Exam Constitutional WD/WN, vitals as above well developed and well nourished Eyes PERRL, conjunctivae normal, anicteric sclerae ENMT external ear and nose normal, oropharynx normal Neck trachea midline, no thyromegaly Respiratory normal respiratory effort, lungs clear to auscultation Cardiovascular RRR, no murmur, no edema Chest (Breasts) normal inspection/palpation of breasts Gastrointestinal (Abdomen) normal bowel sounds, soft, nontender, no hepatosplenomegaly Musculoskeletal no cyanosis or clubbing, extremities motor strength 5/5 Skin no rashes, warm and dry + incision (Clean,dry and intact) Neurologic patellar DTR's 2+ bilat, sensation intact Psychiatric A+Ox3, euthymic affect Genitourinary normal external appearance Lymphatic no cervical or axillary lymphadenopathy Results & Data Vital Signs (Past 12 Hours) Vital Signs Temp Pulse Resp BP Pulse Ox 08/05/19 08:00 36.6 C 67 18 119/76 95 08/04/19 23:20 36.6 C 80 18 116/69 96
[2019-08-06] MEDS: IBUPROFEN 600 MG TAB PO PRN ×2 (00:06→04:31)
[2019-08-06] MEDS: FERROUS SULFATE 325 MG TAB PO SCH (08:37)
[2019-08-06] MEDS: PRENATAL VITAMIN 1 TAB PO SCH (08:37)
[2019-08-06] MEDS: DOCUSATE SODIUM 100 MG CAP PO SCH (08:38)
[2019-08-06] MEDS: SIMETHICONE 80 MG CHEW PO SCH (08:39)
--- NOTE | 2019-08-06 08:44 | Surgery Progress Note ---
Date of Service August 06, 2019 Physical Exam Constitutional: WD/WN, vitals as above abdomen soft non-tender incision clean dry and intact neg edema neg Susanne's for d/c follow up in 1week to remove tramaine Results & Data Vital Signs (Past 12 Hours) Vital Signs Temp Pulse Resp BP Pulse Ox 08/06/19 07:35 36.6 C 67 16 114/73 98 08/05/19 23:40 36.6 C 65 16 113/72 95 Laboratory Results Laboratory Results - last 48 hr 08/05/19 05:59 Hgb 9.8 L Hct 32.3 L
--- NOTE | 2019-08-11 09:35 | Discharge Summary (DS) ---
NOTICE TO RECEIVING DEMOCRAT/AGENCY This information is strictly Confidential and protected under [place] law. [place] law prohibits you from making any further disclosure of this information unless further disclosure is expressly permitted by the written consent of the person to whom it pertains or is authorized by law. A general authorization for the release of medical or other information is not sufficient for this purpose. Hospital accepts no responsibility if the information is made available to any other person, INCLUDING THE PATIENT. CHIEF COMPLAINT: labor. HISTORY OF PRESENT ILLNESS: This is a 29-year-old G2, P1, due date 09/07/2019 making her 35 weeks on 08/03/2019. The patient presented to labor and delivery with contractions every 3-4 minutes. She was a previous section. She received IV fluids and terbutaline. Her cervix changed from 3 to 4 cm and continued to contract. Decision was therefore made to perform section at that time. The patient underwent section, delivered a live infant. Weight and Apgars in the pediatric record. Postop day 1, she met all milestones including tolerating p.o. food and meds. She continued to improve and was discharged home in stable condition on 08/06/2019. PAST MEDICAL HISTORY: The patient had history of migraines, drug use, previous section and hepatitis C. PAST SURGICAL HISTORY: The patient had a previous section for breech presentation. ALLERGIES: THE PATIENT IS ALLERGIC TO BACTRIM, NITROFURANTOIN AND SULFA DRUGS. SOCIAL HISTORY: Denies present use of drugs during the . Denies alcohol and tobacco use. REVIEW OF SYSTEMS: Negative except as dictated in the HPI. PHYSICAL EXAMINATION: VITAL SIGNS: Blood pressure 114/73, pulse 87, respirations 16, temperature 36.6. HEART: S1, S2, regular rhythm and rate. LUNGS: Clear to auscultation bilaterally. ABDOMEN: Nontender, nondistended. Incision clean, dry and intact. EXTREMITIES: No cyanosis, clubbing or edema. CONDITION ON DISCHARGE: Stable. OPERATION: Repeat section. DISCHARGE DIAGNOSIS: Postop after section. PLAN ON DISCHARGE: The patient is discharged home with instructions regarding activity, diet, followup appointment and medication.
== END 2019-08-06 09:45 | disposition home or self-care (01) | DRG 786 ==
LOC: OPB 21:52 → 4S1 21:54 → 4S2 08-03 04:42